=== PATIENT | female | born 1945 | race African-American/Black ===

== ENCOUNTER 2017-02-10 00:34 | Observation (INO) | payer BC ==
[~2017-02-10] VITALS: Ht 160 cm; Wt 85.5 kg
--- NOTE | ~2017-02-10 | HP ---
History And Physical [facility] [address] [place]. [address] NAME: MARIA DOLORES HOLM : 49 STATUS : ADM Zay PAT#: [id number] AGE: 72 ADM/REG DATE : 02/10/17 MR#: [id number] REPORT SERV DATE: 02/10/17 DICTATED BY: CHATO MARION DATE: 02/10/17 REPORT STATUS : Draft TRANSCRIBED BY: MODL DATE: 02/10/17 DATE OF ADMISSION: 02/10/2017 REASON FOR ADMISSION: NSTEMI. HISTORY OF PRESENT ILLNESS: Ms. Holm is a very pleasant 72-year-old female with a history of hypertension, hyperlipidemia, coronary disease, status post multiple PCIs (per records, ADELA to RCA, 2007; ADELA to acute marginal 2010; bare metal stent to second diagonal 2011), SVT status post ablation (1997, Dr. Wiseman), grade 1 bilateral carotid artery disease and hypertension/hyperlipidemia, who presents to [facility] with symptoms of chest pains as well as bilateral arm numbness that started yesterday at around 10 p.m. while she was trying to fall asleep. She states that she has had these pains in the past, and it feels similar to when she had her prior stents placed. In the recent few weeks to months, she has not had any chest pains up until last night. She was not doing anything to provoke these. She is currently chest-pain free. She also had some associated shortness of breath with her chest pains. She denies having any other symptoms otherwise. PAST MEDICAL HISTORY: As above. SOCIAL HISTORY: The patient lives at home and functions independently under normal circumstances. She denies ever smoking, drinking alcohol, or doing drugs. FAMILY HISTORY: Noncontributory for premature cardiac disease. ALLERGIES: TO LIPITOR AND CRESTOR WELL SIMVASTATIN AND CODEINE AND SULFAS. HOME MEDICATIONS: 1. Norvasc 5 mg p.o. daily. 2. Nexium 20 mg p.o. b.i.d. 3. Ibuprofen p.r.n. 4. Prinzide 20/12.5 daily. 5. Lopressor 25 b.i.d. 6. Multivitamin. PHYSICAL EXAMINATION: VITAL SIGNS: Blood pressure 124/81, temperature 98.0, and pulse 74, sinus rhythm. GENERAL: Well developed, well nourished, no acute distress. NEUROLOGIC: Awake, alert and oriented x3; no focal deficits, appropriate mood. HEENT: Moist mucous membranes, anicteric sclerae, no nasal discharge. NECK: No JVD, no carotid bruit. LUNGS: Clear to auscultation bilaterally, no wheezes, rales or rhonchi. CARDIAC: Regular rate and rhythm. Normal S1, S2. A 2/6 systolic murmur at the left sternal border. ABDOMEN: Soft, non-tender, non-distended, no rebound or guarding. EXTREMITIES: No pitting edema, normal distal pulses. SKIN: Warm, dry and intact; no rash. History And Physical [address] [address] NAME: MARIA DLOORES HOLM : [birth year] STATUS : ADM Zay PAT#: [id number] AGE: 72 ADM/REG DATE : 02/10/17 MR#: [id number] REPORT SERV DATE: 02/10/17 DICTATED BY: CHATO MARION DATE: 02/10/17 REPORT STATUS : Draft TRANSCRIBED BY: EVETTE DATE: 02/10/17 PERTINENT TEST FINDINGS: Troponin 0.33. Potassium 3.7, creatinine 0.65. Hemoglobin 11.2, platelets 322. EKG with right bundle branch block, left posterior fascicular block, sinus rhythm, and no ischemic changes. IMPRESSION AND PLAN: Ms. Holm is a 72-year-old female with a history of coronary artery disease, status post PCI as above, with partial compliance demonstrated, (has been lost to follow up with Cardiology multiple times), presenting with new onset chest pressures and pains as of yesterday p.m. in the setting of NSTEMI. Accordingly, I recommend proceeding with the ACS protocol, cardiac heparin drip, aspirin, statin if possible, and beta-mary ellen. I have discussed with her the risks and benefits of coronary angiography with possible PCI and she is amenable with proceeding. Given history of being lost to follow up multiple times in the past with Cardiology, I believe she would be probably a more appropriate candidate for a bare metal stent than a drug-eluting stent at this time. Further recommendations to follow angiogram findings. MANE/EVETTE Chato Marion MD / [id number] CC: MD BRGIITTE Brown
[~2017-02-10 00:34] MED LIST: ADVIL PO; ASAB PO; COQ10100 MG OR; LOP25 PO; NIACIN 500 PO; NORV5 PO; PLAVIX PO; PREV15 PO; QUESTRAN4 GM PO; ZESTORETIC1 TA1 PO; ZETIA PO
[2017-02-10 01:19] LABS: BASOPHILS 0.2 %; BASOPHILS ABSOLUTE 0.01 10/3/uL (0.0-0.16); EOSINOPHILS 3.7 %; EOSINOPHILS ABSOLUTE 0.16 10/3/uL (0.0-0.53); HEMATOCRIT 35.1 % (36.0-48.0); HEMOGLOBIN 11.2 g/dL (12.0-16.0); IMMATURE GRANULOCYTES 0.2 %; IMMATURE GRANULOCYTES ABSOLUTE 0.01 10/3/uL (0.0-0.11); LYMPHOCYTES 32.3 %; MANUAL DIFF NO %; MEAN CORPUS HGB CONC 31.9 g/dL (32.0-36.0); MEAN CORPUSCULAR HEMOGLOB 26.4 pg (26.0-34.0); MEAN CORPUSCULAR VOLUME 82.8 fL (80-100); MEAN PLATELET VOLUME 9.6 fL (9.2-13.0); MONOCYTES 9.9 %; MONOCYTES ABSOLUTE 0.43 10/3/uL (0.21-1.20); NEUTROPHILS 53.7 %; NEUTROPHILS ABSOLUTE 2.33 10/3/uL (2.02-8.40); PLATELET COUNT 322 10/3/uL (150-400); RED CELL COUNT 4.24 10/6/uL (4.0-5.6); WHITE BLOOD CELLS 4.3 10/3/uL (4.5-10.5)
[2017-02-10 01:26] LABS: PARTIAL THROMBO TIME 27.5 SEC (22.5-37.2)
[2017-02-10 01:32] LABS: INTERNATIONAL NORMAL RATI 1.1 UNITS (-); PROTIME (NOT ORD) 13.6 SEC (12.0-14.5)
[2017-02-10 01:36] LABS: BUN (BLOOD UREA NITROGEN) 15 MG/DL (6-23); CALCIUM, SERUM 8.2 MG/DL (8.5-10.4); CHLORIDE, SERUM 108 MMOL/L (96-112); CO2 (CARBON DIOXIDE) 26 MMOL/L (24-34); CREATININE 0.65 MG/DL (0.55-1.02); GFR AFRICAN AMERICAN 104 ML/MIN (>=60); GFR NON AFRICAN AMERICAN 90 ML/MIN (>=60); GLUCOSE, SERUM 94 MG/DL (60-99); POTASSIUM, SERUM 3.7 MMOL/L (3.5-5.3); SODIUM, SERUM 142 MMOL/L (135-148)
[2017-02-10 01:37] LABS: CHEST PAIN PROFILE TAT 0 Hrs 22 Mins; TROPONIN I 0.33 NG/ML (<0.05)
[2017-02-10] MEDS ORDERED: NORV5 PO ×2 (05:23→08:04)
[2017-02-10] MEDS ORDERED: NEXIUM20 M1 (05:23)
[2017-02-10] MEDS ORDERED: PRINZIDE1 TA1 PO ×2 (05:24→08:05)
[2017-02-10] MEDS ORDERED: LOP25 PO ×2 (05:25→08:05)
[2017-02-10] MEDS ORDERED: NEXIUM20 M1 PO (08:05)
[2017-02-10] MEDS ORDERED: ADVIL PO (08:06)
[2017-02-10] MEDS ORDERED: CENTRUM PO (08:06)
[2017-02-10 10:15] LABS: CK-MB 3.4 NG/ML; CPK 251 U/L (0-200); TROPONIN I 0.62 NG/ML (<0.05)
[2017-02-11 05:57] LABS: BASOPHILS 0.2 %; BASOPHILS ABSOLUTE 0.01 10/3/uL (0.0-0.16); EOSINOPHILS 1.2 %; EOSINOPHILS ABSOLUTE 0.07 10/3/uL (0.0-0.53); HEMATOCRIT 34.8 % (36.0-48.0); IMMATURE GRANULOCYTES 0.2 %; IMMATURE GRANULOCYTES ABSOLUTE 0.01 10/3/uL (0.0-0.11); LYMPHOCYTES 17.6 %; LYMPHOCYTES ABSOLUTE 1.04 10/3/uL (0.67-4.30); MANUAL DIFF NO %; MEAN CORPUS HGB CONC 31.6 g/dL (32.0-36.0); MEAN CORPUSCULAR HEMOGLOB 26.1 pg (26.0-34.0); MEAN CORPUSCULAR VOLUME 82.7 fL (80-100); MEAN PLATELET VOLUME 9.7 fL (9.2-13.0); MONOCYTES 8.1 %; MONOCYTES ABSOLUTE 0.48 10/3/uL (0.21-1.20); NEUTROPHILS 72.7 %; NEUTROPHILS ABSOLUTE 4.31 10/3/uL (2.02-8.40); PLATELET COUNT 335 10/3/uL (150-400); RBC DISTRIBUTION WIDTH 13.8 % (12.0-16.0); RED CELL COUNT 4.21 10/6/uL (4.0-5.6); WHITE BLOOD CELLS 5.9 10/3/uL (4.5-10.5)
[2017-02-11 06:12] LABS: CALCIUM, SERUM 8.4 MG/DL (8.5-10.4); CHLORIDE, SERUM 105 MMOL/L (96-112); CHOLESTEROL 269 MG/DL (< 200); CK-MB 10.4 NG/ML; CO2 (CARBON DIOXIDE) 26 MMOL/L (24-34); CPK 269 U/L (0-200); CREATININE 0.79 MG/DL (0.55-1.02); GFR AFRICAN AMERICAN 88 ML/MIN (>=60); GFR NON AFRICAN AMERICAN 76 ML/MIN (>=60); GLUCOSE, SERUM 94 MG/DL (60-99); POTASSIUM, SERUM 3.7 MMOL/L (3.5-5.3); SGPT(ALT) 24 U/L (5-65); SODIUM, SERUM 137 MMOL/L (135-148)
[2017-02-11 06:13] LABS: BUN (BLOOD UREA NITROGEN) 9 MG/DL (6-23); CHOL/HDL RATIO(NOT ORDER) 3.8 (0-5); CKMB INDEX (NOT ORD) 3.9; HDL CHOLESTEROL 71 MG/DL (> 49); LDL CHOLESTEROL 185 MG/DL (< 130); NON-HDL CHOLESTEROL 198 MG/DL (< 160); TRIGLYCERIDE 67 MG/DL (< 150)
[2017-02-11 06:15] LABS: TROPONIN I 3.33 NG/ML (<0.05)
[2017-02-11] MEDS ORDERED: ASAB PO (09:13)
[2017-02-11] MEDS ORDERED: EFFIENT10 PO (09:15)
[2017-02-11] MEDS ORDERED: LOP25 PO (09:18)
[2017-02-11] MEDS ORDERED: MEVACOR40 MG PO (09:18)
== END 2017-02-11 10:05 | disposition home or self-care (01) ==
LOC: ER 00:34 → SSU1 04:27 → 5NO 04:27 → ER/OF 04:27 → 5NO 06:55 → SSU1 15:45
PROVIDERS: Emergency Medicine; Student in an Organized Health Care Education/Training Program
DX: I21.4 Non-ST elevation (NSTEMI) myocardial infarction (principal); I10 Essential (primary) hypertension; E78.5 Hyperlipidemia, unspecified; I25.10 Atherosclerotic heart disease of native coronary artery without angina pectoris; Z88.2 Allergy status to sulfonamides; Z88.5 Allergy status to narcotic agent; Z88.8 Allergy status to other drugs, medicaments and biological substances; Z79.899 Other long term (current) drug therapy; Z98.890 Other specified postprocedural states
CPT/HCPCS: 71010; 80048; 80061; 82550; 82553; 83735; 84460; 84484; 85025; 85610; 85730; 93005; 93306; 93458; 96374; 99152; 99153; 99285; A9270-GY; C1713; C1725; C1769; C1874; C1887; C1894; C9600; G0378; J0583; J2250; J2405; J3010; Q9967